=== PATIENT | female | born 1965 | race Two or more races ===

== ENCOUNTER 2025-01-06 08:30 | Outpatient (RCR) | payer MEDICAID, SELFPAY ==
--- NOTE | 2025-01-05 08:30 | XR_ITS ---
Examination: Nuclear medicine thyroid uptake and scan Date and time: 2024 hours INDICATIONS: Abnormal thyroid function tests on laboratory examination 2 months ago, obesity hypertension TECHNIQUE AND FINDINGS: Oral administration 284 uCi [id number] 6 hour 24 hour uptake values recorded as well as anterior oblique scans 6 hour uptake 19.2% normal range 6-24% 24 hour uptake 51.9% normal range 10-36% Hyperfunctioning mid to upper pole right thyroid nodule IMPRESSION: Elevated 24-hour thyroid uptake value Hyperfunctioning mid to upper pole right thyroid nodule, consider ultrasound-guided thyroid follow-up
== END 2025-01-11 23:59 | disposition home or self-care (01) ==
LOC: SNUC 08:30
PROVIDERS: Referring Provider Internal Medicine Endocrinology, Diabetes & Metabolism; Visit Provider Internal Medicine Endocrinology, Diabetes & Metabolism
DX: E04.1 Nontoxic single thyroid nodule (principal)
CPT/HCPCS: 78013; A9516